=== PATIENT | male | born 1950 | race Caucasian/White ===

== ENCOUNTER → 2016-07-17 | Outpatient (CLI) | payer OTHER ==
--- NOTE | ~2016-07-17 | CR63 ---
[facility] A Service of [facility] & [facility] RADIOLOGY TEXT RESULTS PATIENT: MATHIEU ORTEGA LOCATION: [facility] : 54 UNIT #: [id number] AGE: [address]: Agustina Smith APRN SEX: M ORDER DR: [id number] [facility] [address] [place], [place] [address] [id number] O MR#: [id number] Acc #: [id number] NAME: MATHIEU ORTEGA : 1950 SEX: M STUDY DATE/TIME: 07/17/2016 12:12 UNIT: [facility] ROOM: STUDY DESCRIPTION: CR Chest 2 View Attending Physician: Agustina Smith A.P.R.N. Ordering Physician: Agustina Smith A.P.R.N. MEDICAL IMAGING REPORT This report is preliminary unless electronic signature is present EXAM Chest 07/17/2016 HISTORY Pain lower thoracic spine location, short of breath COMPARISON Chest none. FINDINGS 2-view chest demonstrates normal cardiac size and configuration. Aorta is tortuous. Hilar structures are preserved. Bilateral lungs are expanded and clear and costophrenic angles appear normal. Refer to thoracolumbar spine report. IMPRESSION No acute chest finding Dictated by... Sumanth Cross M.D. THIS IS AN ELECTRONICALLY VERIFIED REPORT Sumanth Cross M.D. at 07/18/2016 8:06 AM LYNN/nick TD: 07/17/2016 18:35 JOB #: [id number] MEDICAL IMAGING REPORT Page 1 of 1 COPY
--- NOTE | ~2016-07-17 | CR247 ---
[facility] A Service of [facility] RADIOLOGY TEXT RESULTS PATIENT: MATHIEU ORTEGA LOCATION: [facility] : 54 UNIT #: [id number] AGE: [address]: Agustina Smith APRN SEX: M ORDER DR: [id number] [facility] [address] [place], [place] [address] [id number] O MR#: [id number] Acc #: [id number] NAME: MATHIEU ORTEGA : 1950 SEX: M STUDY DATE/TIME: 07/17/2016 12:12 UNIT: [facility] ROOM: STUDY DESCRIPTION: CR Thoracolumbar Spine 2 Views Attending Physician: Agustina Smith A.P.R.N. Ordering Physician: Agustina Smith A.P.R.N. MEDICAL IMAGING REPORT This report is preliminary unless electronic signature is present EXAM Lumbar spine 07/17/2016 HISTORY Lower thoracic and upper lumbar pain for the past year with shortness of breath TECHNIQUE AP and lateral views of the lower thoracic and lumbar spine were obtained. FINDINGS There is a mild scoliosis convex to the right across the thoracolumbar junction. The Torres angle is 11 degrees. Moderate degenerative changes are seen at the lower thoracic and upper lumbar discs with moderate-sized osteophytes but no significant disc space narrowing. No fractures or destructive bone lesions are seen. Alignment is satisfactory in the lateral projection. IMPRESSION Moderately large osteophytes are seen at lower thoracic and upper lumbar discs, accompanied by a generalized mild thoracolumbar junction dextroscoliosis of 11 degrees. No acute bony abnormalities are seen. Dictated by... [place] Fierro M.D. THIS IS AN ELECTRONICALLY VERIFIED REPORT [place] Fierro M.D. at 07/19/2016 10:46 AM Shukri TD: 07/18/2016 14:07 JOB #: [id number] [facility] A Service of [facility] RADIOLOGY TEXT RESULTS PATIENT: MATHIEU ORTEGA LOCATION: [facility] #: [id number] : 54 UNIT #: [id number] AGE: [address]: Agustina Smith APRN SEX: M ORDER DR: MEDICAL IMAGING REPORT Page 1 of 1 COPY
== END | disposition home or self-care (01) ==
LOC: CRAD 11:52
DX: M54.9 Dorsalgia, unspecified (principal); M25.78 Osteophyte, vertebrae; M41.9 Scoliosis, unspecified
CPT/HCPCS: 71020; 72080